=== PATIENT | female | born 1950 | race Caucasian/White ===

== ENCOUNTER 2017-03-01 13:28 | Inpatient (IN) | payer BC, OTHER ==
[~2017-03-01] VITALS: Ht 160 cm; Wt 68.0 kg
[~2017-03-01 13:28] MED LIST: CEPH250C PO; HYDR-1115 PO; [UNRECOGNIZED DRUG - OTHER]
[2017-03-01 13:37] VITALS: BP_SYST 144
[2017-03-01 14:28] LABS: BASOPHILS % (AUTO) 0.1 % (0.0-2.0); EOSINOPHILS # (AUTO) 0.1 K/uL (0.0-0.4); EOSINOPHILS % (AUTO) 0.7 % (0.0-4.0); HEMATOCRIT 40.7 % (36-48); HEMOGLOBIN 13.8 g/dL (12.0-16.0); LYMPHOCYTES # (AUTO) 0.8 K/uL (1.0-5.5); LYMPHOCYTES % (AUTO) 7.6 % (20.5-51.5); MEAN CORPUSCULAR HEMOGLOBIN 33 pg (27-31); MEAN CORPUSCULAR HGB CONC 34 % (32-36); MEAN CORPUSCULAR VOLUME 96 fL (79.0-98.0); MONOCYTES # (AUTO) 0.2 K/uL (0.0-1.0); MONOCYTES % (AUTO) 1.4 % (1.7-9.3); NEUTROPHILS # (AUTO) 9.8 K/uL (1.8-7.7); NEUTROPHILS % (AUTO) 90.2 % (40.0-70.0); PLATELET COUNT (AUTO) 418 K/uL (130-430); RED BLOOD CELL COUNT(AUTO) 4.22 MIL/uL (4.2-6.2); RED CELL DISTRIBUTION WIDTH 12.4 % (9.0-15.0); WHITE BLOOD COUNT (AUTO) 10.9 K/uL (4.8-10.8)
[2017-03-01 14:30] LABS: BILIRUBIN,URINE NEGATIVE (NEGATIVE); CLARITY/URINE CLEAR (CLEAR); COLOR,URINE YELLOW (YELLOW); GLUCOSE,URINE NEGATIVE (NEGATIVE); KETONES,URINE NEGATIVE (NEGATIVE); LEUKOCYTE ESTERASE ,URINE NEGATIVE (NEGATIVE); NITRITE, URINE NEGATIVE (NEGATIVE); PH,URINE 7.5 (5.0-8.0); PROTEIN URINE NEGATIVE (NEGATIVE); UROBILINOGEN,URINE 0.2 (0.2-1.0)
[2017-03-01 14:32] LABS: BLOOD, URINE TRACE (NEGATIVE)
[2017-03-01 14:39] LABS: CALCIUM 9.1 mg/dL (8.4-11.0); CREATININE 0.75 mg/dL (0.55-1.30); POTASSIUM 4.1 mmol/L (3.5-5.1)
[2017-03-01 14:42] LABS: BACTERIA,URINE FEW /HPF (None Seen); MUCUS,URINE 1+ /LPF (None Seen); WBC,URINE 0-3 /HPF (0-3)
[2017-03-01 14:44] LABS: ALBUMIN 4.1 g/dL (3.4-4.8); TOTAL BILIRUBIN 0.4 mg/dL (0.0-1.0); TOTAL PROTEIN, SERUM 7.9 g/dL (6.4-8.3)
[2017-03-01] MEDS ORDERED: NACL 0.9% 1,000 ML IV ONE (15:47)
[2017-03-01] MEDS ORDERED: HYDROmorphone 1 MG INJ. 1 MG/ML AMPUL IVP ONE (16:00)
[2017-03-01] MEDS ORDERED: ONDANSETRON HCL 4 MG/2 ML VIAL IVP ONE ×2 (16:00→17:30)
[2017-03-01] MEDS ORDERED: ONDANSETRON HCL 4 MG/2 ML VIAL ONE (17:24)
[2017-03-01] MEDS ORDERED: ACETAMINOPHEN 325 MG TABLET PO PRN (18:00)
[2017-03-01] MEDS ORDERED: MORPHINE 2 MG/ML INJ. SYRINGE IVP PRN (18:00)
[2017-03-01] MEDS ORDERED: OMEP40CA33 PO (18:44)
[2017-03-01] MEDS ORDERED: MECL12.584 PO (18:44)
[2017-03-01] MEDS ORDERED: FENO160 PO (18:44)
[2017-03-01] MEDS ORDERED: SIMV80TA2 PO (18:44)
[2017-03-01] MEDS ORDERED: LOSA1TAB3 PO (18:44)
[2017-03-01] MEDS ORDERED: SOM350 PO (18:44)
[2017-03-01] MEDS ORDERED: ALPR0.5T96 PO (18:44)
[2017-03-01 18:48] VITALS: BP_SYST 153
[2017-03-01 19:08] VITALS: BP_SYST 153
[2017-03-01 19:30] VITALS: BP_SYST 126
[2017-03-01] MEDS: ONDANSETRON HCL 4 MG/2 ML VIAL IVP PRN (20:24)
[2017-03-01] MEDS: D5/0.45 NS 1,000 ML IV SCH (21:25)
[2017-03-02 00:20] VITALS: BP_SYST 117
[2017-03-02 04:21] VITALS: BP_SYST 121
[2017-03-02 07:46] LABS: BASOPHILS % (AUTO) 0.1 % (0.0-2.0); EOSINOPHILS % (AUTO) 0.5 % (0.0-4.0); HEMATOCRIT 34.5 % (36-48); HEMOGLOBIN 11.4 g/dL (12.0-16.0); LYMPHOCYTES # (AUTO) 2.2 K/uL (1.0-5.5); LYMPHOCYTES % (AUTO) 36.9 % (20.5-51.5); MEAN CORPUSCULAR HEMOGLOBIN 32 pg (27-31); MEAN CORPUSCULAR HGB CONC 33 % (32-36); MEAN CORPUSCULAR VOLUME 98 fL (79.0-98.0); MONOCYTES # (AUTO) 0.5 K/uL (0.0-1.0); NEUTROPHILS # (AUTO) 3.1 K/uL (1.8-7.7); NEUTROPHILS % (AUTO) 54.5 % (40.0-70.0); PLATELET COUNT (AUTO) 316 K/uL (130-430); RED BLOOD CELL COUNT(AUTO) 3.53 MIL/uL (4.2-6.2); RED CELL DISTRIBUTION WIDTH 12.1 % (9.0-15.0)
[2017-03-02 08:00] VITALS: BP_SYST 129; BP_SYST 90
[2017-03-02 08:00] LABS: CALCIUM 8.1 mg/dL (8.4-11.0); CREATININE 0.77 mg/dL (0.55-1.30); POTASSIUM 3.4 mmol/L (3.5-5.1)
[2017-03-02 08:02] LABS: WHITE BLOOD COUNT (AUTO) 5.9 K/uL (4.8-10.8)
[2017-03-02 12:47] VITALS: BP_SYST 139
[2017-03-02] MEDS: D5/0.45 NS 1,000 ML IV SCH ×2 (13:12→23:55)
[2017-03-02 16:38] VITALS: BP_SYST 141
[2017-03-02 20:00] VITALS: BP_SYST 154
[2017-03-02] MEDS: ALPRAZolam 0.25 MG TABLET PO PRN (22:20)
[2017-03-03] VITALS (7 sets, daily range): BP systolic 121–142
[2017-03-03] MEDS ORDERED: LR 1,000 ML IV SCH (12:57)
[2017-03-03] MEDS ORDERED: MEPERIDINE HCL/PF 25 MG/ML DISP.SYRIN IVP PRN (13:00)
[2017-03-03] MEDS ORDERED: HYDROmorphone 1 MG INJ. 1 MG/ML AMPUL IVP PRN (13:00)
[2017-03-03] MEDS ORDERED: HYDROmorphone 2 MG/ML VIAL IVP PRN ×2 (13:00)
[2017-03-03] MEDS: D5/0.45 NS 1,000 ML IV SCH ×2 (13:15→13:45)
[2017-03-03] MEDS ORDERED: HYDROcodone/ACETAMIN 5-325 MG TAB (NORCO/ VICODIN) PO PRN (13:45)
[2017-03-03] MEDS ORDERED: HYDROmorphone 2 MG/ML VIAL ONE (14:22)
[2017-03-03] MEDS: ONDANSETRON HCL 4 MG/2 ML VIAL IVP PRN (15:18)
[2017-03-03] MEDS: METOCLOPRAMIDE HCL 10 MG/2 ML VIAL IVP SCH (20:30)
[2017-03-03] MEDS: HYDROcodone/ACETAMIN 5-325 MG TAB (NORCO/ VICODIN) PO PRN (20:42)
[2017-03-04 00:01] VITALS: BP_SYST 113
[2017-03-04] MEDS: METOCLOPRAMIDE HCL 10 MG/2 ML VIAL IVP SCH ×4 (00:44→17:12)
[2017-03-04] MEDS: D5/0.45 NS 1,000 ML IV SCH ×2 (04:00→14:33)
[2017-03-04 04:12] VITALS: BP_SYST 113
[2017-03-04 08:34] VITALS: BP_SYST 102; BP_SYST 120
[2017-03-04] MEDS: HYDROcodone/ACETAMIN 5-325 MG TAB (NORCO/ VICODIN) PO PRN ×2 (09:46→17:43)
[2017-03-04 12:28] VITALS: BP_SYST 130
[2017-03-04 16:44] VITALS: BP_SYST 134
[2017-03-04] MEDS: ALPRAZolam 0.25 MG TABLET PO PRN (20:25)
[2017-03-04 23:50] VITALS: BP_SYST 140
[2017-03-05] MEDS: METOCLOPRAMIDE HCL 10 MG/2 ML VIAL IVP SCH ×2 (00:19→05:31)
[2017-03-05] MEDS: D5/0.45 NS 1,000 ML IV SCH (00:20)
[2017-03-05 04:00] VITALS: BP_SYST 142
[2017-03-05 08:00] VITALS: BP_SYST 145
[2017-03-05 08:38] VITALS: BP_SYST 145
[2017-03-05] MEDS ORDERED: POLYETHYLENE GLYCOL 3350, 17 GM/ POWD.PACK PO SCH (09:00)
[2017-03-05] MEDS ORDERED: TYC3 PO ×2 (10:04→10:05)
== END 2017-03-05 10:41 | disposition home or self-care (01) | DRG 419 ==
LOC: SED 13:28 → SMU 17:51
PROVIDERS: ADMIT Family Medicine; ATTEND Family Medicine
PROC: 0FT44ZZ Resection of Gallbladder, Percutaneous Endoscopic Approach (ICD-10-PCS; principal; 2017-03-03 12:00)
DX: K80.00 Calculus of gallbladder with acute cholecystitis without obstruction (principal); I10 Essential (primary) hypertension; E78.5 Hyperlipidemia, unspecified; E78.00 Pure hypercholesterolemia, unspecified; M81.0 Age-related osteoporosis without current pathological fracture; E66.9 Obesity, unspecified; Z68.26 Body mass index [BMI] 26.0-26.9, adult; Z88.8 Allergy status to other drugs, medicaments and biological substances; Z88.1 Allergy status to other antibiotic agents; Z79.899 Other long term (current) drug therapy; Z90.710 Acquired absence of both cervix and uterus
CPT/HCPCS: 36415; 71010; 80048; 80053; 81000-TC; 82150-TC; 83690-TC; 85025; 85610-TC; 86886; 86900; 86901; 87081; 88304; 93005; 94010; 94760; 96361; 96374; 96375; 96376; 99285; C1727; J1170; J2405; J2765; J7030